=== PATIENT | female | born 1990 | race Caucasian/White ===

== ENCOUNTER → 2017-10-03 | Outpatient (CLI) | payer OTHER ==
[~2017-10-03] MED LIST: ACET-76 PO; IBUP-1484 PO; LORA10TA3 PO; MULT-224 PO; WELLNESS FORMULA PO
== END | disposition home or self-care (01) ==
LOC: STAR 13:54
PROVIDERS: ATTEND Surgery
DX: Z02.9 Encounter for administrative examinations, unspecified (principal)

== ENCOUNTER 2017-10-08 06:53 | Day surgery (SDC) | payer OTHER ==
[~2017-10-08] VITALS: Ht 165.1 cm; Wt 57.0 kg
[2017-10-08] MEDS ORDERED: EPINEPHRINE 1 MG/ML, 1ML ONE (07:11)
[2017-10-08] MEDS ORDERED: BUPIVACAINE/PF 0.5% ONE (07:11)
[2017-10-08] MEDS ORDERED: LACTATED RINGERS 1,000 ML IV SCH (07:12)
[2017-10-08] MEDS ORDERED: LIDOCAINE 1%, 2ML ONE (07:14)
[2017-10-08 07:16] VITALS: BP 136/90
[2017-10-08 07:22] LABS: HCG UR LOT HCG7030192
[2017-10-08 07:30] LABS: HCG UR OBC PASS
[2017-10-08] MEDS ORDERED: LIDOCAINE 1%, 2ML SQ PRN (07:30)
[2017-10-08] MEDS ORDERED: FENTANYL PF 100 MCG/2ML ONE ×2 (07:50)
[2017-10-08] MEDS ORDERED: MIDAZOLAM 1 MG/ML, 2ML ONE (07:50)
[2017-10-08] MEDS ORDERED: PROPOFOL 10 MG/ML, 20ML ONE (07:51)
[2017-10-08] MEDS ORDERED: ROCURONIUM 10 MG/ML,10ML ONE (07:52)
[2017-10-08] MEDS ORDERED: CEFAZOLIN 1,000 MG ONE ×2 (07:53)
[2017-10-08] MEDS ORDERED: ONDANSETRON 2MG/ML, 2ML ONE (07:55)
[2017-10-08] MEDS ORDERED: DEXAMETHASONE 4 MG/ML, 1ML ONE ×2 (07:55)
[2017-10-08] MEDS ORDERED: GLYCOPYRROLATE 0.4 MG/2 ML, 2ML ONE (07:56)
[2017-10-08] MEDS ORDERED: NEOSTIGMINE 1 MG/ML, 10ML ONE (07:56)
[2017-10-08] MEDS ORDERED: ONDANSETRON 2MG/ML, 2ML IVPush PRN (08:30)
[2017-10-08] MEDS ORDERED: OXYcodone 5 MG/5 ML ORAL.SOL UDC PO PRN (08:30)
[2017-10-08] MEDS ORDERED: HYDROmorphone 1 MG/ML, 1ML IV PRN (08:30)
[2017-10-08] MEDS ORDERED: MEPERIDINE/PF 25MG/0.5ML IVPush PRN (08:30)
[2017-10-08] MEDS ORDERED: ACETAMINOPHEN 325 MG TABLET PO PRN (08:30)
[2017-10-08] MEDS ORDERED: PROMETHAZINE 25 MG/ML, 1ML IV PRN (08:30)
[2017-10-08] MEDS ORDERED: FENTANYL PF 100 MCG/2ML IV PRN (08:30)
[2017-10-08] MEDS ORDERED: ACETAMINOPHEN 650 MG/20.3 ML UDC ONE (09:04)
[2017-10-08] MEDS ORDERED: MEPERIDINE/PF 25MG/0.5ML ONE (09:05)
[2017-10-08] MEDS ORDERED: OXYcodone 5 MG/5 ML ORAL.SOL UDC ONE (09:05)
== END 2017-10-08 13:00 ==
LOC: OUT 06:53
PROVIDERS: ATTEND Surgery
DX: K42.9 Umbilical hernia without obstruction or gangrene (principal); Z72.89 Other problems related to lifestyle
CPT/HCPCS: 49585; 81025; J0171; J0690; J1100; J2175; J2250; J2405; J2704; J2710; J3010; J3490; J7120